=== PATIENT | male | born 2000 | race Caucasian/White ===

== ENCOUNTER 2019-04-18 15:24 | Emergency (ER) | payer OTHER ==
[~2019-04-18] VITALS: Ht 172.7 cm; Wt 103.6 kg
[2019-04-18 15:57] VITALS: Ht 172.7 cm; Wt 103.6 kg
[2019-04-18 19:31] VITALS: BP 110/59
== END 2019-04-18 19:31 | disposition home or self-care (01) ==
LOC: ED 15:24
DX: S61.012A Laceration without foreign body of left thumb without damage to nail, initial encounter (principal); S63.502A Unspecified sprain of left wrist, initial encounter; W22.8XXA Striking against or struck by other objects, initial encounter; Y93.89 Activity, other specified; Y92.89 Other specified places as the place of occurrence of the external cause; Y99.8 Other external cause status
CPT/HCPCS: 90715; J1885; J2001

== ENCOUNTER 2019-04-20 16:30 | Emergency (ER) | payer OTHER ==
[~2019-04-20] VITALS: Ht 172.7 cm; Wt 103.4 kg
[2019-04-20 16:50] VITALS: Ht 172.7 cm; Wt 103.4 kg
[2019-04-20 17:44] VITALS: BP 109/59
== END 2019-04-20 17:44 | disposition home or self-care (01) ==
LOC: ED 16:30
DX: S61.412D Laceration without foreign body of left hand, subsequent encounter (principal); X58.XXXD Exposure to other specified factors, subsequent encounter

== ENCOUNTER 2019-04-22 00:11 | Emergency (ER) | payer OTHER ==
[~2019-04-22] VITALS: Ht 175.3 cm; Wt 103.4 kg
[2019-04-22 00:28] VITALS: BP 116/74; Ht 175.3 cm; Wt 103.4 kg
== END 2019-04-22 01:09 | disposition home or self-care (01) ==
LOC: ED 00:11
DX: S61.412D Laceration without foreign body of left hand, subsequent encounter (principal); W01.198D Fall on same level from slipping, tripping and stumbling with subsequent striking against other object, subsequent encounter

== ENCOUNTER 2019-05-02 18:05 | Emergency (ER) | payer OTHER ==
[~2019-05-02] VITALS: Ht 172.7 cm; Wt 104.3 kg
[2019-05-02 18:08] VITALS: Ht 172.7 cm; Wt 104.3 kg
[2019-05-02 19:51] VITALS: BP 122/68
== END 2019-05-02 19:51 | disposition home or self-care (01) ==
LOC: ED 18:05
DX: S61.012D Laceration without foreign body of left thumb without damage to nail, subsequent encounter (principal); W20.8XXD Other cause of strike by thrown, projected or falling object, subsequent encounter